=== PATIENT | male | born 1970 | race Caucasian/White ===

== ENCOUNTER 2023-05-01 21:38 | Inpatient (IN) | payer OTHER, SELFPAY ==
--- NOTE | ~2023-05-01 | XR_ITS ---
EXAMINATION: XR SHOULDER, LEFT CLINICAL INFORMATION: Pain COMPARISON: None available. TECHNIQUE: Four views of the left shoulder. FINDINGS: Glenohumeral alignment is anatomic. No acute fracture is seen. Acromioclavicular joint is intact. XR/XR shoulder LT min 2V IMPRESSION: No acute findings.
[2023-05-01 21:55] VITALS: BP 137/87; PULSE 88; RESP 18; TEMP 36.5; O2SAT 100
[2023-05-01 22:04] VITALS: BMI 24.0
[2023-05-01] MEDS: Acetaminophen 325 MG TABLET 650 MG PO (23:55)
[2023-05-01] MEDS: hydrOXYzine HCL 25 MG TABLET PO (23:56)
--- NOTE | 2023-05-02 01:25 | PC.ADMIT ---
Rolando Riggs is a 52yo male, admitted to the unit at 2150 from [facility] on CV for treatment for SI and unspecified depressive disorder. He reported ongoing SI without a specific plan or intent. He stated intense pain in his shoulder from tendonitis which is currently flaring it. He claimed that the pain is excruciating and exacerbating his SI. He said other stressors includes being evicted from his home, getting an alteration with his which lead to taking out a restraining order, and their 10 yo daughter being removed from home by DCF. Pt is calm and cooperative, mood is depressed and affect is anxious during admission process. He denied HI, AVH but endorsing SI statement I just have this thought of ending it all . He denied any medical conditions. He complained of excruciating shoulder pain and insomnia hence one time order for Flexeril put in by on-call provider. Treatment plan initiated and hospitalist informed for consultation.
[2023-05-02] MEDS: Melatonin 3 MG TABLET PO ×2 (01:46→22:54)
[2023-05-02] MEDS: Cyclobenzaprine HCl 10 MG TABLET PO ×3 (01:47→20:56)
[2023-05-02] MEDS: Acetaminophen 325 MG TABLET 650 MG PO ×3 (06:01→22:54)
[2023-05-02 07:57] LABS: Estimated Average Glucose 85 mg/dL; Hemoglobin A1c % 4.6 %
[2023-05-02 08:05] LABS: Alanine Aminotransferase 11 U/L (0-40); Alkaline Phosphatase 80 U/L (39-117); Anion Gap 14 (12-20); Aspartate Amino Transferase 14 U/L (5-37); Bilirubin Total 0.3 mg/dL (0.0-1.0); Blood Urea Nitrogen 18 mg/dL (9-16); Calcium 9.4 mg/dL (8.4-10.2); Carbon Dioxide 23 mmol/L (22-29); Chloride 103 mmol/L (96-108); Cholesterol 180 mg/dL; Estimated Glomerular Filt Rate > 60; Glucose Fasting 114 mg/dL (60-99); HDL Cholesterol 41 mg/dL; LDL Cholesterol Calculated 111 mg/dl; Potassium 4.2 mmol/L (3.3-5.1); Sodium 136 mmol/L (135-145); Total Protein 7.2 g/dL (6.5-8.0); Triglycerides 144 mg/dL
[2023-05-02 08:30] VITALS: BP 119/79; PULSE 110; TEMP 36.5; O2SAT 98
[2023-05-02] MEDS: Folic Acid 1 MG TABLET 2 MG PO (09:13)
[2023-05-02] MEDS: Omeprazole 20 MG CAPSULE.DR PO (09:14)
[2023-05-02] MEDS: Ferrous Sulfate 324 MG TABLET.DR PO (09:14)
[2023-05-02] MEDS: Thiamine HCL 100 MG TABLET PO (09:14)
[2023-05-02] MEDS: Loratadine 10 MG TABLET PO (09:15)
[2023-05-02] MEDS: Lidocaine 4 % Patch ADH..PATCH 1 PATCH TRANSDERMA (09:24)
[2023-05-02] MEDS: hydrOXYzine HCL 25 MG TABLET PO ×2 (09:28→19:18)
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
--- NOTE | 2023-05-02 15:49 | PM.EVENT ---
Event Note Date of Service: 05/02/23 Event Note: I attempted to see this patient at 15:00, patient is sleeping, not waking up for me, I will attempt to see him in the evening Time Spent With Patient Time: Total time managing care of this patient today ____ minutes.
[2023-05-02 21:30] VITALS: BP 132/74; PULSE 110; TEMP 36.3; O2SAT 98
[2023-05-02] MEDS: traMADoL HCL 50 MG TABLET PO (21:31)
[2023-05-02] MEDS: Mirtazapine 7.5 MG TABLET PO (22:56)
[2023-05-03] MEDS: Cyclobenzaprine HCl 10 MG TABLET PO ×3 (02:44→22:10)
[2023-05-03 06:58] LABS: MANUAL DIFF FLAG NO
[2023-05-03 07:10] LABS: Basophils Absolute Auto 0.1 X10*3/uL (0.0-0.2); Basophils Percent Auto 1.5 % (0-2); Eosinophils Absolute Auto 0.5 X10*3/uL (0.0-0.4); Eosinophils Percent Auto 7.6 % (0-4); Hematocrit 31.1 % (42.0-52.0); Imm Gran Abs Auto 0.02 X10*3/uL (0.00-0.03); Imm Gran Pct Auto 0.3 % (0.0-0.4); Lymphocytes Absolute Auto 1.6 X10*3/uL (1.2-4.9); Lymphocytes Percent Auto 27.2 % (20-40); Mean Corpuscular HGB Conc 28.9 g/dl (31.0-36.0); Mean Corpuscular Hemoglobin 22.2 pg (27.0-33.0); Mean Corpuscular Volume 76.8 fL (80.0-98.0); Mean Platelet Volume 10.6 fL (9.4-12.4); Monocytes Absolute Auto 0.9 X10*3/uL (0.1-1.2); Monocytes Percent Auto 15.3 % (2-11); Neutrophils Absolute Auto 2.9 x10*3/uL (2.0-8.3); Neutrophils Percent Auto 48.1 % (45-73); Platelet Count 478 X10*3/uL (160-400); Red Blood Count 4.05 X10*6/uL (4.60-5.80); Red Cell Distribution Width 22.1 % (11.0-16.0)
[2023-05-03] MEDS: Thiamine HCL 100 MG TABLET PO (09:31)
[2023-05-03] MEDS: Omeprazole 20 MG CAPSULE.DR PO (09:31)
[2023-05-03] MEDS: Loratadine 10 MG TABLET PO (09:31)
[2023-05-03] MEDS: hydrOXYzine HCL 25 MG TABLET PO (09:31)
[2023-05-03] MEDS: Folic Acid 1 MG TABLET 2 MG PO (09:31)
[2023-05-03] MEDS: traMADoL HCL 50 MG TABLET PO ×2 (09:32→17:26)
[2023-05-03] MEDS: Ferrous Sulfate 324 MG TABLET.DR PO (09:32)
[2023-05-03] MEDS: Lidocaine 4 % Patch ADH..PATCH 2 PATCH TRANSDERMA (09:33)
[2023-05-03 09:35] VITALS: BP 127/80; PULSE 110; TEMP 36.6; O2SAT 100
--- NOTE | 2023-05-03 10:04 | HO.PSYCHPN ---
Subjective Subjective Date of Service: 05/03/23 Reason For Visit: major depression Subjective Notes: Conditional Voluntary Interim History: Reluctantly took first dose of remeron and found it somewhat helpful with sleep but did not feel sedated from it this morning. Had declined to meet with hospitalist yesterday and also not wanting to talk to me. Wants MRI of his shoulder. Told this could be addressed tomorrow as it is a chronic problem. Tramadol was added for pain in addition to lidocaine and flexeril. Medication Compliance: Yes Side effects from medications: No Attending Groups: No Review of Systems Acute medical concerns: Yes shoulder pain Medical Review of Systems: unchanged Mental Status Exam Mental Status Exam Patient Appearance: Disheveled Patient Orientation: Person, Place, Time and Situation Level of Consciousness: Alert Patient Behavior: Appropriate Mood Description: Withdrawn Affect Description: Depressed Patient Cognition Impaired: No Ability to Follow Directions: Good Speech Pattern: Clear Memory Description: Intact Hallucinations: None Delusions: Not Present Thought Process: Intact Thought Content: positive for Intact Depressive Symptoms: Insomnia and Muscle Pain Judgement: Fair Diagnostics Vital Signs (24Hr): Vital Signs - 24 hr 05/02/23 21:30 Temperature 97.4 F Pulse Rate 110 H Blood Pressure 132/74 Pulse Oximetry 98 Oxygen Delivery Method Room Air BMI result Body Mass Index 24.0 Labs 05/03/23 06:49 05/02/23 07:04 Labs: Laboratory Results - last 48 hr 05/02/23 05/02/23 05/03/23 07:04 07:04 06:49 WBC 6.0 RBC 4.05 L Hgb 9.0 L Hct 31.1 L MCV 76.8 L MCH 22.2 L MCHC 28.9 L RDW 22.1 H Plt Count 478 H MPV 10.6 Immature Gran % (Auto) 0.3 Neut % (Auto) 48.1 Lymph % (Auto) 27.2 [place] % (Auto) 15.3 H Eos % (Auto) 7.6 H Baso % (Auto) 1.5 Lymph # (Auto) 1.6 [place] # (Auto) 0.9 Eos # (Auto) 0.5 H Baso # (Auto) 0.1 Abs Immat Gran (auto) 0.02 Absolute Neuts (auto) 2.9 Absolute Nucleated RBC 0.000 Nucleated RBC % (auto) 0.0 Sodium 136 Potassium 4.2 Chloride 103 Carbon Dioxide 23 Anion Gap 14 BUN 18 H Creatinine 0.91 Estim Creat Clear Calc 98.0 Estimated GFR > 60 Fasting Glucose 114 H Estimat Average Glucose 85 Hemoglobin A1c % 4.6 Calcium 9.4 Total Bilirubin 0.3 AST 14 ALT 11 Alkaline Phosphatase 80 Total Protein 7.2 Albumin 4.0 Triglycerides 144 Cholesterol 180 LDL Cholesterol, Calc 111 HDL Cholesterol 41 Imaging Radiology Impressions: ITS Impressions Shoulder X-Ray 05/02/23 21:55 IMPRESSION: No acute findings. Medications Medications Current Medications Acetaminophen (Acetaminophen 325 Mg Tablet) 650 mg PO Q6H PRN PRN Reason: Headache/Pain Mild Scale (1-3) Last Admin: 05/02/23 22:54 Dose: 650 mg Al Hydroxide/Mg Hydroxide (Magnesium Hydrox/Alum Hydrox 30 Ml Oral.Susp) 30 ml PO Q6H PRN PRN Reason: Heartburn/Nausea Cyclobenzaprine HCl (Cyclobenzaprine Hcl 10 Mg Tablet) 10 mg PO TID PRN PRN Reason: muscle ache Last Admin: 05/03/23 02:44 Dose: 10 mg Ferrous Sulfate (Ferrous Sulfate 324 Mg Tablet.Dr) 324 mg PO DAILY [facility] Last Admin: 05/03/23 09:32 Dose: 324 mg Folic Acid (Folic Acid 1 Mg Tablet) 2 mg PO DAILY [facility] Last Admin: 05/03/23 09:31 Dose: 2 mg Hydroxyzine HCl (Hydroxyzine Hcl 25 Mg Tablet) 25 mg PO Q6H PRN PRN Reason: Anxiety Last Admin: 05/03/23 09:31 Dose: 25 mg Lidocaine (Lidocaine 4 % Patch Adh..Patch) 2 patch TRANSDERMA DAILY [facility]; Protocol Last Admin: 05/03/23 09:33 Dose: 2 patch Loratadine (Loratadine 10 Mg Tablet) 10 mg PO DAILY [facility] Last Admin: 05/03/23 09:31 Dose: 10 mg Magnesium Hydroxide (Milk Of Magnesia 30 Ml Oral.Susp) 30 ml PO DAILY PRN PRN Reason: Constipation Melatonin (Melatonin 3 Mg Tablet) 3 mg PO BEDTIME PRN PRN Reason: Insomnia Last Admin: 05/02/23 22:54 Dose: 3 mg Mirtazapine (Mirtazapine 7.5 Mg Tablet) 7.5 mg PO BEDTIME [facility] Last Admin: 05/02/23 22:56 Dose: 7.5 mg Nicotine (Nicotine 21 Mg Patch.Td24) 21 mg TRANSDERMA DAILY PRN PRN Reason: smoking cessation Nicotine Polacrilex (Nicotine Polacrilex 2 Mg Gum) 4 mg BUCCAL Q2H PRN PRN Reason: Nicotine Cravings Olanzapine (Olanzapine 5 Mg Tablet) 5 mg PO TID PRN PRN Reason: agitation Omeprazole (Omeprazole 20 Mg Capsule.Dr) 20 mg PO DAILY [facility] Last Admin: 05/03/23 09:31 Dose: 20 mg Thiamine HCl (Thiamine Hcl 100 Mg Tablet) 100 mg PO DAILY [facility] Last Admin: 05/03/23 09:31 Dose: 100 mg Tramadol HCl (Tramadol Hcl 50 Mg Tablet) 50 mg PO Q6H PRN PRN Reason: shoulder pain Last Admin: 05/03/23 09:32 Dose: 50 mg Trazodone HCl (Trazodone Hcl 50 Mg Tablet) 50 mg PO BEDTIME MRX1 PRN PRN Reason: Insomnia Allergies Allergies Allergy/AdvReac Type Severity Reaction Status Date / Time Penicillins Allergy Intermediate Anaphylaxis Verified 05/01/23 22:12 risperidone Allergy Anaphylaxis Verified 05/01/23 22:16 Assessment & Plan Assessment & Plan (1) PTSD (post-traumatic stress disorder): Status: Acute Code(s): F43.10 - Post-traumatic stress disorder, unspecified (2) Major depression, recurrent: Status: Acute Code(s): F33.9 - Major depressive disorder, recurrent, unspecified Assessment and Plan: Just started on remeron. Continue PRN trazodone (3) Suicidal ideation: Status: Acute Code(s): R45.851 - Suicidal ideations (4) GI bleed: Status: Acute Code(s): K92.2 - Gastrointestinal hemorrhage, unspecified Plan 52-year-old male with past medical history of depression, PTSD, as well as erosive gastritis who was admitted to [facility] for management of SI, complaining of left shoulder pain. # SI/major depression - management per [facility] team - currently not suicidal # history of GI bleed,/erosive gastritis - status post upper endoscopy at [facility] day prior to presentation, found to have erosive gastritis - H&H stable - would recommend following CBC in a.m. - continue PPI - if has a drop in CBC would recommend consulting GI # left shoulder pain - acute on chronic - will order tramadol - will obtain x-ray of the left shoulder - if no significant pain relief with tramadol, lidocaine patch, as well as Tylenol and Flexeril , consider orthopedic consult Will follow this patient along Reason for continued inpatient stay Substantial Risk for: harm to self Time Spent With Patient Time: Total time managing care of this patient today ___20_ minutes.
[2023-05-03] MEDS: Acetaminophen 325 MG TABLET 650 MG PO (18:44)
[2023-05-03] MEDS: OLANZapine 5 MG TABLET PO (22:10)
[2023-05-03] MEDS: Mirtazapine 7.5 MG TABLET PO (22:10)
[2023-05-03] MEDS: Melatonin 3 MG TABLET PO (22:11)
[2023-05-03 22:14] VITALS: BP 142/77; PULSE 102; TEMP 36.3; O2SAT 99
[2023-05-04] MEDS: Ferrous Sulfate 324 MG TABLET.DR PO (09:35)
[2023-05-04] MEDS: Folic Acid 1 MG TABLET 2 MG PO (09:35)
[2023-05-04] MEDS: Loratadine 10 MG TABLET PO (09:35)
[2023-05-04] MEDS: Thiamine HCL 100 MG TABLET PO (09:35)
[2023-05-04] MEDS: Omeprazole 20 MG CAPSULE.DR PO (09:35)
[2023-05-04 09:38] VITALS: BP 116/67; PULSE 97; RESP 18; TEMP 36.7; O2SAT 100
[2023-05-04] MEDS: hydrOXYzine HCL 25 MG TABLET PO ×2 (09:41→22:12)
[2023-05-04] MEDS: Cyclobenzaprine HCl 10 MG TABLET PO ×2 (09:41→18:35)
[2023-05-04] MEDS: traMADoL HCL 50 MG TABLET PO ×2 (13:19→22:12)
[2023-05-04] MEDS: Lidocaine 4 % Patch ADH..PATCH 2 PATCH TRANSDERMA (13:19)
--- NOTE | 2023-05-04 17:28 | P.PNPSI_ITS ---
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 Pt reports he did not sleep well due to shoulder pain and his most pressing concern is shoulder pain. Pt request MRI of shoulder- it is chronic pain but will defer to hospitalist. When asked about psychiatric concerns that brought him to the unit- re: suicidal ideation, pt declined to talk more about it as he states his main concern is shoulder pain. Note that yesterday, pt declined to speak with hospitalist. Will reconsult hospitalist. Per nursing, pt mostly in bed, not attending groups. Review of Systems Review of Systems Yes all other systems are reviewed and are negative Gastrointestinal: Reports melena Musculoskeletal: Reports other Psychiatric: Reports abnormal sleep pattern, Reports change in appetite and Reports suicidal ideation Mental Status Exam Mental Status Exam Patient Appearance: Disheveled Patient Orientation: Person, Place, Time and Situation Level of Consciousness: Alert Patient Behavior: Appropriate Mood Description: Withdrawn Affect Description: Depressed Patient Cognition Impaired: No Ability to Follow Directions: Good Speech Pattern: Clear Memory Description: Intact Diagnostics Vital Signs (24Hr): Vital Signs - 24 hr 05/03/23 22:14 05/04/23 09:38 Temperature 97.4 F 98.0 F Pulse Rate 102 H 97 Respiratory Rate 18 Blood Pressure 142/77 H 116/67 Pulse Oximetry 99 100 Oxygen Delivery Method Room Air BMI result Body Mass Index 24.0 Labs 05/03/23 06:49 05/02/23 07:04 Labs: Laboratory Results - last 48 hr 05/03/23 06:49 WBC 6.0 RBC 4.05 L Hgb 9.0 L Hct 31.1 L MCV 76.8 L MCH 22.2 L MCHC 28.9 L RDW 22.1 H Plt Count 478 H MPV 10.6 Immature Gran % (Auto) 0.3 Neut % (Auto) 48.1 Lymph % (Auto) 27.2 Mayes % (Auto) 15.3 H Eos % (Auto) 7.6 H Baso % (Auto) 1.5 Lymph # (Auto) 1.6 Mayes # (Auto) 0.9 Eos # (Auto) 0.5 H Baso # (Auto) 0.1 Abs Immat Gran (auto) 0.02 Absolute Neuts (auto) 2.9 Absolute Nucleated RBC 0.000 Nucleated RBC % (auto) 0.0 Imaging Radiology Impressions: ITS Impressions Shoulder X-Ray 05/02/23 21:55 IMPRESSION: No acute findings. Medications Medications Current Medications Acetaminophen (Acetaminophen 325 Mg Tablet) 650 mg PO Q6H PRN PRN Reason: Headache/Pain Mild Scale (1-3) Last Admin: 05/03/23 18:44 Dose: 650 mg Al Hydroxide/Mg Hydroxide (Magnesium Hydrox/Alum Hydrox 30 Ml Oral.Susp) 30 ml PO Q6H PRN PRN Reason: Heartburn/Nausea Capsaicin (Capsaicin 0.025% Cream 60 Gm Tube) 1 appl TOPICAL TID PRN; Protocol PRN Reason: Pain, Mild (Pain Scale 1-3) Cyclobenzaprine HCl (Cyclobenzaprine Hcl 10 Mg Tablet) 10 mg PO TID PRN PRN Reason: muscle ache Last Admin: 05/04/23 09:41 Dose: 10 mg Ferrous Sulfate (Ferrous Sulfate 324 Mg Tablet.Dr) 324 mg PO DAILY [facility] Last Admin: 05/04/23 09:35 Dose: 324 mg Folic Acid (Folic Acid 1 Mg Tablet) 2 mg PO DAILY [facility] Last Admin: 05/04/23 09:35 Dose: 2 mg Hydroxyzine HCl (Hydroxyzine Hcl 25 Mg Tablet) 25 mg PO Q6H PRN PRN Reason: Anxiety Last Admin: 05/04/23 09:41 Dose: 25 mg Lidocaine (Lidocaine 4 % Patch Adh..Patch) 2 patch TRANSDERMA DAILY [facility]; Protocol Last Admin: 05/04/23 13:19 Dose: 2 patch Loratadine (Loratadine 10 Mg Tablet) 10 mg PO DAILY [facility] Last Admin: 05/04/23 09:35 Dose: 10 mg Magnesium Hydroxide (Milk Of Magnesia 30 Ml Oral.Susp) 30 ml PO DAILY PRN PRN Reason: Constipation Melatonin (Melatonin 3 Mg Tablet) 3 mg PO BEDTIME PRN PRN Reason: Insomnia Last Admin: 05/03/23 22:11 Dose: 3 mg Mirtazapine (Mirtazapine 7.5 Mg Tablet) 7.5 mg PO BEDTIME [facility] Last Admin: 05/03/23 22:10 Dose: 7.5 mg Nicotine (Nicotine 21 Mg Patch.Td24) 21 mg TRANSDERMA DAILY PRN PRN Reason: smoking cessation Nicotine Polacrilex (Nicotine Polacrilex 2 Mg Gum) 4 mg BUCCAL Q2H PRN PRN Reason: Nicotine Cravings Olanzapine (Olanzapine 5 Mg Tablet) 5 mg PO TID PRN PRN Reason: agitation Last Admin: 05/03/23 22:10 Dose: 5 mg Omeprazole (Omeprazole 20 Mg Capsule.Dr) 20 mg PO DAILY [facility] Last Admin: 05/04/23 09:35 Dose: 20 mg Thiamine HCl (Thiamine Hcl 100 Mg Tablet) 100 mg PO DAILY [facility] Last Admin: 05/04/23 09:35 Dose: 100 mg Tramadol HCl (Tramadol Hcl 50 Mg Tablet) 50 mg PO Q6H PRN PRN Reason: shoulder pain Last Admin: 05/04/23 13:19 Dose: 50 mg Trazodone HCl (Trazodone Hcl 50 Mg Tablet) 50 mg PO BEDTIME MRX1 PRN PRN Reason: Insomnia Allergies Allergies Allergy/AdvReac Type Severity Reaction Status Date / Time Penicillins Allergy Intermediate Anaphylaxis Verified 05/01/23 22:12 risperidone Allergy Anaphylaxis Verified 05/01/23 22:16 Assessment & Plan Assessment & Plan (1) PTSD (post-traumatic stress disorder): Status: Acute Code(s): F43.10 - Post-traumatic stress disorder, unspecified (2) Major depression, recurrent: Status: Acute Code(s): F33.9 - Major depressive disorder, recurrent, unspecified Assessment and Plan: Just started on remeron. Continue PRN trazodone (3) Suicidal ideation: Status: Acute Code(s): R45.851 - Suicidal ideations (4) GI bleed: Status: Acute Code(s): K92.2 - Gastrointestinal hemorrhage, unspecified Plan 52-year-old male with past medical history of depression, PTSD, as well as erosive gastritis who was admitted to [facility] for management of SI, complaining of left shoulder pain. # SI/major depression - management per [facility] team - currently not suicidal # history of GI bleed,/erosive gastritis - status post upper endoscopy at [facility] day prior to presentation, found to have erosive gastritis - H&H stable - would recommend following CBC in a.m. - continue PPI - if has a drop in CBC would recommend consulting GI # left shoulder pain - acute on chronic - will order tramadol - will obtain x-ray of the left shoulder - if no significant pain relief with tramadol, lidocaine patch, as well as Tylenol and Flexeril , consider orthopedic consult psych: 05/04 continue tx. Reason for continued inpatient stay Substantial Risk for: inability to function Time Spent With Patient Time: Total time managing care of this patient today ____ minutes.
--- NOTE | 2023-05-04 17:52 | PM.EVENT ---
Event Note Date of Service: 05/04/23 Event Note: Consult placed for evaluation of acute on chronic left shoulder pain. Patient was seen and evaluated by my colleague for this on 05/02 and tramadol was ordered. Xray was ordered without any osseous abnormality. Ortho consult was recommended if no improvement. If there has been no improvement with tramadol, please consider ortho consult. Would leave additional narcotic administration at the discretion of psychiatry. If uncontrolled, consider oxycodone 5mg q6h if appropriate. Time Spent With Patient Time: Total time managing care of this patient today ____ minutes.
[2023-05-04] MEDS: Acetaminophen 325 MG TABLET 650 MG PO (18:34)
--- NOTE | 2023-05-04 18:41 | PC.NURSE ---
Pt came to nurses desk , something is wrong with my legs, my veins didn't show like this. Pt lifted his paints leg up to show his lower legs , some veins are visible. Thread Machine Operator asked if he was getting enough water, he reports that he drinks water all day. Chelsea Kumar NP notified of Pts symptoms to include a photo of lower extremities. via tiger text.
[2023-05-04 19:35] VITALS: BP 134/73; PULSE 100; TEMP 36.6; O2SAT 99
[2023-05-04] MEDS: OLANZapine 5 MG TABLET PO (22:11)
[2023-05-04] MEDS: Melatonin 3 MG TABLET PO (22:11)
[2023-05-04] MEDS: Mirtazapine 7.5 MG TABLET PO (22:11)
[2023-05-05] MEDS: Thiamine HCL 100 MG TABLET PO (08:37)
[2023-05-05] MEDS: Ferrous Sulfate 324 MG TABLET.DR PO (08:37)
[2023-05-05] MEDS: Folic Acid 1 MG TABLET 2 MG PO (08:37)
[2023-05-05] MEDS: traMADoL HCL 50 MG TABLET PO ×2 (08:38→15:48)
[2023-05-05] MEDS: Omeprazole 20 MG CAPSULE.DR PO (08:38)
[2023-05-05] MEDS: Cyclobenzaprine HCl 10 MG TABLET PO ×2 (08:38→21:34)
[2023-05-05] MEDS: Loratadine 10 MG TABLET PO (08:38)
[2023-05-05 08:40] VITALS: BP 162/89; PULSE 92; RESP 18; TEMP 36.6; O2SAT 99
[2023-05-05] MEDS: Acetaminophen 325 MG TABLET 650 MG PO ×2 (12:33→19:27)
[2023-05-05] MEDS: Capsaicin 0.025% Cream 60 GM TUBE 1 APPL TOPICAL ×2 (12:37→19:28)
--- NOTE | 2023-05-05 15:39 | HO.PSYCHPN ---
Subjective Subjective Date of Service: 05/05/23 Reason For Visit: major depression Interim History: calm, cooperative. asks for lidocaine patch DC. capsaicin is available to him, which is reviewed. identifies as target Sx emotional numbness/emptiness, rumination, feeling of abandonment. also expresses concern for nocturia. agreeable to increase remeron and schedule low-dose zyprexa at HS. per staff, c/o SI 2/2 pain. can't sleep 2/2 pain. using PRN tramadol. wants something to relax. asking for capsaicin or aspercreme. lidoderm unhelpful. up at 0300 2/2 pain, refused trazodone. Mental Status Exam Mental Status Exam Narrative: disheveled, cooperative, no PMA/PMR. speech incr in rate and amount, nml loudness, decr latency. thoughts linear and logical. affect constricted, normo-intense, non-labile. mood not assessed. no SI/HI/AVH expressed. Diagnostics Vital Signs (24Hr): Vital Signs - 24 hr 05/04/23 19:35 05/05/23 08:40 Temperature 98 F 97.8 F Pulse Rate 100 92 Respiratory Rate 18 Blood Pressure 134/73 162/89 H Pulse Oximetry 99 99 Oxygen Delivery Method Room Air Room Air BMI result Body Mass Index 24.0 Labs 05/03/23 06:49 05/02/23 07:04 Imaging Radiology Impressions: ITS Impressions Shoulder X-Ray 05/02/23 21:55 IMPRESSION: No acute findings. Medications Medications Current Medications Acetaminophen (Acetaminophen 325 Mg Tablet) 650 mg PO Q6H PRN PRN Reason: Headache/Pain Mild Scale (1-3) Last Admin: 05/05/23 12:33 Dose: 650 mg Al Hydroxide/Mg Hydroxide (Magnesium Hydrox/Alum Hydrox 30 Ml Oral.Susp) 30 ml PO Q6H PRN PRN Reason: Heartburn/Nausea Capsaicin (Capsaicin 0.025% Cream 60 Gm Tube) 1 appl TOPICAL TID PRN; Protocol PRN Reason: Pain, Mild (Pain Scale 1-3) Last Admin: 05/05/23 12:37 Dose: 1 appl Cyclobenzaprine HCl (Cyclobenzaprine Hcl 10 Mg Tablet) 10 mg PO TID PRN PRN Reason: muscle ache Last Admin: 05/05/23 08:38 Dose: 10 mg Ferrous Sulfate (Ferrous Sulfate 324 Mg Tablet.) 324 mg PO DAILY [facility] Last Admin: 05/05/23 08:37 Dose: 324 mg Folic Acid (Folic Acid 1 Mg Tablet) 2 mg PO DAILY [facility] Last Admin: 05/05/23 08:37 Dose: 2 mg Hydroxyzine HCl (Hydroxyzine Hcl 25 Mg Tablet) 25 mg PO Q6H PRN PRN Reason: Anxiety Last Admin: 05/04/23 22:12 Dose: 25 mg Loratadine (Loratadine 10 Mg Tablet) 10 mg PO DAILY [facility] Last Admin: 05/05/23 08:38 Dose: 10 mg Magnesium Hydroxide (Milk Of Magnesia 30 Ml Oral.Susp) 30 ml PO DAILY PRN PRN Reason: Constipation Melatonin (Melatonin 3 Mg Tablet) 3 mg PO BEDTIME PRN PRN Reason: Insomnia Last Admin: 05/04/23 22:11 Dose: 3 mg Mirtazapine (Mirtazapine 7.5 Mg Tablet) 7.5 mg PO BEDTIME [facility] Last Admin: 05/04/23 22:11 Dose: 7.5 mg Nicotine (Nicotine 21 Mg Patch.Td24) 21 mg TRANSDERMA DAILY PRN PRN Reason: smoking cessation Nicotine Polacrilex (Nicotine Polacrilex 2 Mg Gum) 4 mg BUCCAL Q2H PRN PRN Reason: Nicotine Cravings Olanzapine (Olanzapine 5 Mg Tablet) 5 mg PO TID PRN PRN Reason: agitation Last Admin: 05/04/23 22:11 Dose: 5 mg Omeprazole (Omeprazole 20 Mg Capsule.) 20 mg PO DAILY [facility] Last Admin: 05/05/23 08:38 Dose: 20 mg Thiamine HCl (Thiamine Hcl 100 Mg Tablet) 100 mg PO DAILY [facility] Last Admin: 05/05/23 08:37 Dose: 100 mg Tramadol HCl (Tramadol Hcl 50 Mg Tablet) 50 mg PO Q6H PRN PRN Reason: shoulder pain Last Admin: 05/05/23 08:38 Dose: 50 mg Trazodone HCl (Trazodone Hcl 50 Mg Tablet) 50 mg PO BEDTIME MRX1 PRN PRN Reason: Insomnia Allergies Allergies Allergy/AdvReac Type Severity Reaction Status Date / Time Penicillins Allergy Intermediate Anaphylaxis Verified 05/01/23 22:12 risperidone Allergy Anaphylaxis Verified 05/01/23 22:16 Assessment & Plan Assessment & Plan (1) PTSD (post-traumatic stress disorder): Status: Acute Code(s): F43.10 - Post-traumatic stress disorder, unspecified (2) Major depression, recurrent: Status: Acute Code(s): F33.9 - Major depressive disorder, recurrent, unspecified Assessment and Plan: Just started on remeron. Continue PRN trazodone (3) Suicidal ideation: Status: Acute Code(s): R45.851 - Suicidal ideations (4) GI bleed: Status: Acute Code(s): K92.2 - Gastrointestinal hemorrhage, unspecified Plan 52-year-old male with past medical history of depression, PTSD, as well as erosive gastritis who was admitted to [facility] for management of SI, complaining of left shoulder pain. # SI/major depression - management per [facility] team - currently not suicidal # history of GI bleed,/erosive gastritis - status post upper endoscopy at [facility] day prior to presentation, found to have erosive gastritis - H&H stable - would recommend following CBC in a.m. - continue PPI - if has a drop in CBC would recommend consulting GI # left shoulder pain - acute on chronic - will order tramadol - will obtain x-ray of the left shoulder - if no significant pain relief with tramadol, lidocaine patch, as well as Tylenol and Flexeril , consider orthopedic consult psych: 05/04 continue tx. 05/05: increase remeron to 15 mg QHS, schedule zyprexa 5 mg QHS. otherwise continue current mgmt. Reason for continued inpatient stay Substantial Risk for: harm to self, inability to function and rapid decompensation Time Spent With Patient Time: Total time managing care of this patient today _25___ minutes.
[2023-05-05 19:55] VITALS: BP 140/82; PULSE 90; RESP 18; TEMP 36.6; O2SAT 100
[2023-05-05] MEDS: OLANZapine 5 MG TABLET PO (21:35)
[2023-05-05] MEDS: hydrOXYzine HCL 25 MG TABLET PO (21:35)
[2023-05-05] MEDS: Melatonin 3 MG TABLET PO (21:35)
[2023-05-05] MEDS: Mirtazapine 15 MG TABLET PO (21:35)
[2023-05-06] MEDS: Acetaminophen 325 MG TABLET 650 MG PO ×3 (04:42→22:17)
[2023-05-06 08:00] VITALS: BP 135/89; PULSE 102; RESP 18; TEMP 36.4; O2SAT 98
[2023-05-06] MEDS: Cyclobenzaprine HCl 10 MG TABLET PO ×3 (09:17→22:16)
[2023-05-06] MEDS: traMADoL HCL 50 MG TABLET PO ×2 (09:17→17:35)
[2023-05-06] MEDS: Folic Acid 1 MG TABLET 2 MG PO (09:18)
[2023-05-06] MEDS: Omeprazole 20 MG CAPSULE.DR PO (09:18)
[2023-05-06] MEDS: Thiamine HCL 100 MG TABLET PO (09:18)
[2023-05-06] MEDS: Loratadine 10 MG TABLET PO (09:18)
[2023-05-06] MEDS: Ferrous Sulfate 324 MG TABLET.DR PO (09:18)
[2023-05-06] MEDS: hydrOXYzine HCL 25 MG TABLET PO ×2 (09:21→17:36)
--- NOTE | 2023-05-06 15:27 | P.PNPSI_ITS ---
Subjective Subjective Date of Service: 05/06/23 Reason For Visit: major depression Interim History: poor sleep, shoulder pain. agreeable to increase HS regimen. informed of ortho consult. per staff, irritable. no SI/HI/AVH. c/o poor sleep. c/o severe anx/dep. not attending groups. Mental Status Exam Mental Status Exam Narrative: disheveled, cooperative, no PMA/PMR. speech incr in rate and amount, nml loudness, decr latency. thoughts linear and logical. affect constricted, n ormo-intense, non-labile. mood not assessed. no SI/HI/AVH expressed. Diagnostics Vital Signs (24Hr): Vital Signs - 24 hr 05/05/23 19:55 05/06/23 08:00 Temperature 98 F 97.6 F Pulse Rate 90 102 H Respiratory Rate 18 18 Blood Pressure 140/82 H 135/89 Pulse Oximetry 100 98 Oxygen Delivery Method Room Air Room Air BMI result Body Mass Index 24.0 Labs 05/03/23 06:49 05/02/23 07:04 Imaging Radiology Impressions: ITS Impressions Shoulder X-Ray 05/02/23 21:55 IMPRESSION: No acute findings. Medications Medications Current Medications Acetaminophen (Acetaminophen 325 Mg Tablet) 650 mg PO Q6H PRN PRN Reason: Headache/Pain Mild Scale (1-3) Last Admin: 05/06/23 13:25 Dose: 650 mg Al Hydroxide/Mg Hydroxide (Magnesium Hydrox/Alum Hydrox 30 Ml Oral.Susp) 30 ml PO Q6H PRN PRN Reason: Heartburn/Nausea Capsaicin (Capsaicin 0.025% Cream 60 Gm Tube) 1 appl TOPICAL TID PRN; Protocol PRN Reason: Pain, Mild (Pain Scale 1-3) Last Admin: 05/05/23 19:28 Dose: 1 appl Cyclobenzaprine HCl (Cyclobenzaprine Hcl 10 Mg Tablet) 10 mg PO TID PRN PRN Reason: muscle ache Last Admin: 05/06/23 13:25 Dose: 10 mg Ferrous Sulfate (Ferrous Sulfate 324 Mg Tablet.) 324 mg PO DAILY [facility] Last Admin: 05/06/23 09:18 Dose: 324 mg Folic Acid (Folic Acid 1 Mg Tablet) 2 mg PO DAILY [facility] Last Admin: 05/06/23 09:18 Dose: 2 mg Hydroxyzine HCl (Hydroxyzine Hcl 25 Mg Tablet) 25 mg PO Q6H PRN PRN Reason: Anxiety Last Admin: 05/06/23 09:21 Dose: 25 mg Loratadine (Loratadine 10 Mg Tablet) 10 mg PO DAILY [facility] Last Admin: 05/06/23 09:18 Dose: 10 mg Magnesium Hydroxide (Milk Of Magnesia 30 Ml Oral.Susp) 30 ml PO DAILY PRN PRN Reason: Constipation Melatonin (Melatonin 3 Mg Tablet) 3 mg PO BEDTIME PRN PRN Reason: Insomnia Last Admin: 05/05/23 21:35 Dose: 3 mg Mirtazapine (Mirtazapine 15 Mg Tablet) 15 mg PO BEDTIME [facility] Last Admin: 05/05/23 21:35 Dose: 15 mg Nicotine (Nicotine 21 Mg Patch.Td24) 21 mg TRANSDERMA DAILY PRN PRN Reason: smoking cessation Nicotine Polacrilex (Nicotine Polacrilex 2 Mg Gum) 4 mg BUCCAL Q2H PRN PRN Reason: Nicotine Cravings Olanzapine (Olanzapine 5 Mg Tablet) 5 mg PO TID PRN PRN Reason: agitation Last Admin: 05/04/23 22:11 Dose: 5 mg Olanzapine (Olanzapine 5 Mg Tablet) 5 mg PO BEDTIME [facility] Last Admin: 05/05/23 21:35 Dose: 5 mg Omeprazole (Omeprazole 20 Mg Capsule.Dr) 20 mg PO DAILY [facility] Last Admin: 05/06/23 09:18 Dose: 20 mg Thiamine HCl (Thiamine Hcl 100 Mg Tablet) 100 mg PO DAILY [facility] Last Admin: 05/06/23 09:18 Dose: 100 mg Tramadol HCl (Tramadol Hcl 50 Mg Tablet) 50 mg PO Q6H PRN PRN Reason: shoulder pain Last Admin: 05/06/23 09:17 Dose: 50 mg Trazodone HCl (Trazodone Hcl 50 Mg Tablet) 50 mg PO BEDTIME MRX1 PRN PRN Reason: Insomnia Allergies Allergies Allergy/AdvReac Type Severity Reaction Status Date / Time Penicillins Allergy Intermediate Anaphylaxis Verified 05/01/23 22:12 risperidone Allergy Anaphylaxis Verified 05/01/23 22:16 Assessment & Plan Assessment & Plan (1) PTSD (post-traumatic stress disorder): Status: Acute Code(s): F43.10 - Post-traumatic stress disorder, unspecified (2) Major depression, recurrent: Status: Acute Code(s): F33.9 - Major depressive disorder, recurrent, unspecified Assessment and Plan: Just started on remeron. Continue PRN trazodone (3) Suicidal ideation: Status: Acute Code(s): R45.851 - Suicidal ideations (4) GI bleed: Status: Acute Code(s): K92.2 - Gastrointestinal hemorrhage, unspecified Plan 52-year-old male with past medical history of depression, PTSD, as well as erosive gastritis who was admitted to [facility] for management of SI, complaining of left shoulder pain. # SI/major depression - management per [facility] team - currently not suicidal # history of GI bleed,/erosive gastritis - status post upper endoscopy at [facility] day prior to presentation, found to have erosive gastritis - H&H stable - would recommend following CBC in a.m. - continue PPI - if has a drop in CBC would recommend consulting GI # left shoulder pain - acute on chronic - will order tramadol - will obtain x-ray of the left shoulder - if no significant pain relief with tramadol, lidocaine patch, as well as Tylenol and Flexeril , consider orthopedic consult psych: 05/04 continue tx. 05/05: increase remeron to 15 mg QHS, schedule zyprexa 5 mg QHS. otherwise continue current mgmt. 05/06: inc rease remeron to 30 mg QHS, increase zyprexa to 10 mg QHS. ortho consult placed for tendonitis. otherwise continue current mgmt. Reason for continued inpatient stay Substantial Risk for: inability to function Time Spent With Patient Time: Total time managing care of this patient today __25__ minutes.
[2023-05-06] MEDS: OLANZapine 5 MG TABLET PO (17:35)
[2023-05-06 19:45] VITALS: BP 137/64; PULSE 101; RESP 18; TEMP 36.6; O2SAT 98
[2023-05-06] MEDS: Magnesium Hydrox/Alum Hydrox 30 ML ORAL.SUSP PO (22:16)
[2023-05-06] MEDS: OLANZapine 10 MG TABLET PO (22:17)
[2023-05-06] MEDS: Melatonin 3 MG TABLET PO (22:17)
[2023-05-06] MEDS: Mirtazapine 30 MG TABLET PO (22:18)
[2023-05-07 07:00] VITALS: BMI 25.0
[2023-05-07 10:00] VITALS: BP 138/71; PULSE 105; TEMP 37.1; O2SAT 98
[2023-05-07] MEDS: Thiamine HCL 100 MG TABLET PO (10:35)
[2023-05-07] MEDS: Ferrous Sulfate 324 MG TABLET.DR PO (10:35)
[2023-05-07] MEDS: Folic Acid 1 MG TABLET 2 MG PO (10:35)
[2023-05-07] MEDS: Loratadine 10 MG TABLET PO (10:36)
[2023-05-07] MEDS: Omeprazole 20 MG CAPSULE.DR PO (10:36)
[2023-05-07] MEDS: Cyclobenzaprine HCl 10 MG TABLET PO ×2 (10:44→21:31)
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
[2023-05-07] MEDS: traMADoL HCL 50 MG TABLET PO ×2 (13:55→19:57)
[2023-05-07] MEDS: OLANZapine 5 MG TABLET PO (14:00)
[2023-05-07] MEDS: hydrOXYzine HCL 25 MG TABLET PO ×2 (14:00→21:31)
[2023-05-07 19:45] VITALS: BP 139/74; PULSE 94; RESP 18; TEMP 36.6; O2SAT 99
[2023-05-07] MEDS: Melatonin 3 MG TABLET PO (21:30)
[2023-05-07] MEDS: Mirtazapine 30 MG TABLET PO (21:31)
[2023-05-07] MEDS: OLANZapine 10 MG TABLET PO (21:31)
[2023-05-08] MEDS: Folic Acid 1 MG TABLET 2 MG PO (10:41)
[2023-05-08] MEDS: traMADoL HCL 50 MG TABLET PO (10:41)
[2023-05-08] MEDS: Loratadine 10 MG TABLET PO (10:42)
[2023-05-08] MEDS: Ferrous Sulfate 324 MG TABLET.DR PO (10:42)
[2023-05-08] MEDS: Omeprazole 20 MG CAPSULE.DR PO (10:42)
[2023-05-08] MEDS: Thiamine HCL 100 MG TABLET PO (10:42)
== END 2023-05-08 12:05 | disposition home or self-care (01) | DRG 751 ==
PROVIDERS: Internal Medicine; Psychiatry & Neurology Psychiatry; Admitting Provider Psychiatry & Neurology Psychiatry; PCP Physician Assistant Medical; Visit Provider Psychiatry & Neurology Psychiatry
DX: F33.9 Major depressive disorder, recurrent, unspecified (principal); K29.61 Other gastritis with bleeding; R45.851 Suicidal ideations; M25.512 Pain in left shoulder; G89.29 Other chronic pain; F43.12 Post-traumatic stress disorder, chronic; F17.210 Nicotine dependence, cigarettes, uncomplicated; Z59.02 Unsheltered homelessness; Z71.6 Tobacco abuse counseling; Z79.899 Other long term (current) drug therapy
CPT/HCPCS: 36415; 73030; 80053; 80061; 83036; 85025

== ENCOUNTER → 2023-05-01 21:38 | Outpatient (BNV) | payer OTHER, SELFPAY | PROVIDERS: Admitting Provider Psychiatry & Neurology Psychiatry; PCP Physician Assistant Medical; Visit Provider Internal Medicine | DX: F43.11 Post-traumatic stress disorder, acute (principal); F33.9 Major depressive disorder, recurrent, unspecified; R45.851 Suicidal ideations; K92.2 Gastrointestinal hemorrhage, unspecified | CPT/HCPCS: 99232; 99499 ==

== ENCOUNTER → 2023-05-01 21:38 | Outpatient (BNV) | payer OTHER, SELFPAY | PROVIDERS: Admitting Provider Psychiatry & Neurology Psychiatry; PCP Physician Assistant Medical; Visit Provider Psychiatry & Neurology Psychiatry | DX: F43.11 Post-traumatic stress disorder, acute (principal); F33.9 Major depressive disorder, recurrent, unspecified; R45.851 Suicidal ideations; K92.2 Gastrointestinal hemorrhage, unspecified | CPT/HCPCS: 99231; 99232; 99233 ==